=== PATIENT | male | born 1955 | race Caucasian/White ===

== ENCOUNTER 2020-10-25 16:41 | Emergency (ER) | payer MEDICARE ==
[2020-10-25 17:59] LABS: BASOPHIL 0.5 % (0-2); EOSINOPHIL 8.2 % (0-7); HCT 43.5 % (42.0-52.0); HGB 15.2 g/dl (13.2-18.0); LYMPHOCYTE 32.9 % (15-48); MCH 32.2 pg (25.0-31.0); MCHC 34.9 g/dL (32.0-36.0); MCV 92.2 fL (78.0-100.0); MONOCYTE 8.8 % (0-12); MPV 9.5 fL (6.0-9.5); NEUTROPHIL 49.3 % (41-80); NRBC 0; PLT 258 K/uL (150-400); RBC 4.72 M/uL (4.70-6.00); RDW 12.2 % (11.5-14.0); WBC 7.5 K/uL (4.0-10.5)
[2020-10-25 18:16] LABS: BUN/CREAT RATIO (CALC) 17.2 RATIO; CREATININE 0.93 mg/dL (0.67-1.17); POTASSIUM 3.4 mmol/L (3.5-5.1)
[2020-10-25] MEDS ORDERED: MEDROL 4MG DOSEP4 MG PO (18:48)
[2020-11-20] MEDS ORDERED: DULOXETINE HCL20 MG PO (12:44)
[2020-12-13] MEDS ORDERED: CYMBALTA60 MG PO (18:10)
[2020-12-21] MEDS ORDERED: DULOXETINE HCL20 MG PO (14:56)
[2021-01-31] MEDS ORDERED: DULOXETINE HCL20 MG PO (18:03)
== END 2020-10-25 19:42 | disposition home or self-care (01) ==
LOC: FER 16:41
PROVIDERS: Emergency Medicine
DX: M47.22 Other spondylosis with radiculopathy, cervical region (principal); I10 Essential (primary) hypertension; R22.32 Localized swelling, mass and lump, left upper limb
CPT/HCPCS: 36415; 72125; 73060; 80048; 85025; J1170